=== PATIENT | male | born 1960 | race African-American/Black ===

== ENCOUNTER 2024-10-31 07:29 | Outpatient (CLI) | payer BC, SELFPAY ==
--- NOTE | ~2024-10-31 | PE_ITS ---
EXAMINATION: PET_PETPSMAST_PT DATE: 10/31/2024 09:55 INDICATION: Prostate cancer TECHNIQUE: 5.347 mCi of Illucix Ga-68([id number]) was administered i.v. Low dose computed stephanie graphy (CT) images were acquired from the base of the brain to the base of the brain to the proximal thighs for attenuation correction and anatomic localization. Positron emission tomography (PET) image s were acquired in the same distribution beginning 104 minutes after injection. Images including fuse d PET/CT images were reconstructed in axial, coronal, and sagittal planes. Automated exposure control technique was employed. The dose-length product was 1211.52mGy-cm. COMPARISON: None FINDINGS: Head/neck: Typical pattern of symmetric physiologic increased activity in the lacrimal, parotid and submandibula r glands as well as along the mucosa of the nasal and oral cavities, pharynx and hypopharynx. No path ologically enlarged cervical lymphadenopathy or suspicious foci of increased uptake in the visualized head or neck. Chest: Mild emphysema. Borderline cardiomegaly. No pericardial or pleural effusion. Thoracic aorta is normal in caliber. No pathologically enlarged or PSMA avid thoracic lymphadenopathy. Abdomen/pelvis/proximal thighs: Physiologic renal accumulation and excretion of activity in the kidneys, bladder and along portions o f ureters. Low-attenuation photopenic cyst at both kidneys larger on the right measuring 4.7 cm. Pros tatomegaly measuring 5.1 x 3.9 cm with heterogeneous mild this may uptake with small focus of subtly increased uptake with maximal SUV of 5.1 at the right side of the prostate likely representing the si te of reported primary prostate cancer. Normal degree and slightly heterogenous pattern of increased uptake throughout the liver, spleen and a couple more caudal small splenules without radiologic corre late or dominant PSMA avid lesion. The gallbladder, pancreas and bilateral adrenal glands are normal. Moderate uptake scattered throughout the bowels with typical duodenal and proximal jejunal predomina nce and without radiologic correlate, also likely physiologic. Normal appendix. No other abnormal foc i of increased uptake or pathologically enlarged lymphadenopathy in the abdomen, pelvis or proximal t highs. Musculoskeletal: Mild scattered degenerative skeletal changes. No suspicious lytic, blastic or abnormally PSMA avid adali ne lesions. IMPRESSION: 1. Small focus of mild uptake at the right-sided the enlarged prostate consistent with reported prima ry prostate cancer. No evident metastatic disease. Reviewed, dictated and finalized at location A. IMPRESSION: 1. Small focus of mild uptake at the right-sided the enlarged prostate consiste nt with reported primary prostate cancer. No evident metastatic disease.
--- OUTSIDE RECORDS SUMMARY | 2024-10-31 07:36 | XMS_ITS | Encounter Summary ---
Author Organization [facility] Address [facility] [place] [address] Care Team Providers Care Acid Dipper Name Role Phone Bakari Howe MD Primary Care Provider [phone] Encounter Details Date Type Department Care Team (Latest Contact Info) Description 02/13/[address] [facility] , Generic Conversion, Social History Tobacco Use Types Packs/Day Years Used Date Smoking Tobacco: Never Assessed Sex and Gender Information Value Date Recorded Sex Assigned at Male 10/04/2024 3:09 PM CDT Legal Sex Male 4:43 PM CDT Gender Identity Not on file Sexual Orientation Not on file documented as of this encounter Plan of Treatment Not on file documented as of this encounter Visit Diagnoses Not on filedocumented in this encounter Additional Health Concerns Infection Onset Date Last Indicated Resolved Time COVID-19 Rule Out 02/14/2020 02/14/2020 02/17/2020 2:31 AM COMMUNICATION ELECTRONIC TECHNICIAN COVID-19 Confirmed 02/14/2020 02/14/2020 1 12:34 AM COMMUNICATION ELECTRONIC TECHNICIAN documented as of this encounter Care Teams Acid Dipper Relationship Specialty Start Date End Date Bakari Howe MD [facility] [place] [address] PCP - General FAMILY PRACTICE 11/29/19 documented as of this encounter
--- OUTSIDE RECORDS SUMMARY | 2024-10-31 07:36 | XMS_ITS | Encounter Summary ---
Author Organization [facility] Address [facility] [place] [address] Care Team Providers Care Bell Neck Hammerer Name Role Phone Bakari Howe MD Primary Care Provider [phone] Encounter Details Date Type Department Care Team (Late st Contact Info) Description 10/02/2024 [employer] Message Enc [facility] Pre-[place]mission [place] [address] [facility] Provider PLEASE CALL US AT YOUR EARLIEST CONVENIENCE Social History Tobacco Use Types Packs/Day Years Used Date Smoking Tobacco: Never Smokeless Tobacco: Never Alcohol Use Standard Drinks/Week Comments Yes 3.3 (1 standard drink = 0.6 oz p ure alcohol) socially AUDIT-C Answer Date Recorded Q1: How often do you have a drink containing alc ohol? Never 12/12/2019 Average Number of Drinks Not on file 020 Frequency of Binge Drinking Not on file 06/2019 PHQ-2 Answer Date Recorded PHQ-2 Score - If the patient scores above 3, please move on to questions 3-9 0 01/08/2020 Sex and Gender Information Value Date Recorded Sex Assigned at Male 10/04/2024 3:09 PM CDT Legal Sex Male 4:43 PM CDT Gender Identity Not on file Sexual Orientation Not on file documented as of this encounter Plan of Treatment Not on file documented as of this encounter Visit Diagnoses Not on filedocumented in this encounter Care Teams Bell Neck Hammerer Relationship Specialty Start Date End Date Bakari Howe MD [facility] [place] [address] PCP - General FAMILY PRACTICE 11/29/19 documented as of this encounter
--- OUTSIDE RECORDS SUMMARY | 2024-10-31 07:36 | XMS_ITS | Encounter Summary ---
Author Organization [facility] Address [address] [place] [address] Care Team Providers Care Inhalation Therapist Name Role Phone Bakari Howe MD Primary Care Provider + [phone] Encounter Details Date Type Department Care Team (Late st Contact Info) Description 10/09/2024 Prep for Procedure [facility] Laboratory [address] [place], [place] [id number] Gautam Wright MD [address] [facility] [address] [place], [place] [id number] Social History Tobacco Use Types Packs/Day Years [...] on file documented as of this encounter Functional Status * Calculated C-SSRS Risk Score (Lifetime/Recent) Answer Date of Assessment Author Status No Risk Indicated 10/09/2024 8:20 AM CDT Me francisco Valenzuela RN Active * [place] Suicide Severity Rating Scale (Screener/Recent Self-Report) Question Answer Date of Assessment Author Status 1. Wish to be (Past 1 Month) No 10/09/2024 8:20 AM SENAT Guanaco Valenzuela RN Active 2. Non-Specific Active Suicidal Thoughts (Past 1 Month) No 10/09/2024 8:20 AM SENAT Guanaco Valenzuela RN Active 6. Suicidal Behavior (Lifetime) No 10/09/2024 8:20 AM CDT Mary Vlaenzuela sa, RN Active documented as of this encounter Plan of Treatment Not on file documented as of this encounter Results * URINE BACTERIA CULTURE (10/04/2024 3:20 PM CDT) SPEC DESCRIPTION URINE CLEAN CATCH 10/04/2024 3:38 PM CDT [facility] SPECIAL REQUESTS NO SPECIAL REQUEST 10/04/2024 3:38 PM CDT [facility] CULTURE RESULT NO GROWTH 2 DAYS 10/06/2024 8:31 AM CDT [facility] URINE SPECIMEN OBTAINED BY CLEAN CATCH PROCEDURE / Unknown 10/04/2024 3:20 PM CDT 10/04/2024 3:39 PM CDT Gautam Wright MD MICROBIOLOGY - GENERAL OR DERABLES Final Result [facility] [address] [place] [address], [place] [phone] * URINALYSIS (10/04/2024 3:20 PM CDT) SPECIMEN TYPE URINE CLEAN CATCH 10/04/2024 3:38 PM CDT [facility] COLOR (U) LIGHT YELLOW 10/04/2024 3:46 PM CDT [facility] TRANSPARENCY CLEAR 10/04/2024 3:46 PM CDT [facility] SPECIFIC GRAVITY (U) 1.021 1.001 - 1.030 10/04/2024 3:46 PM CDT [facility] U PH 6.5 5.0 - 9.0 10/04/2024 3:46 PM CDT [facility] LEUKOCYTES (U) NEGATIVE NEGATIVE 10/04/2024 3:46 PM CDT [facility] NITRITES NEGATIVE NEGATIVE 10/04/2024 3:46 PM CDT [facility] PROTEIN RANDOM (U) NEGATIVE <30 MG/DL 10/04/2024 3:46 PM CDT [facility] GLUCOSE (U) NORMAL NORMAL MG/DL 10/04/2024 3:46 PM CDT [facility] KETONES MG/DL (U) NEGATIVE NEGATIVE MG/DL 10/04/2024 3:46 PM CDT [facility] UROBILINOGEN NORMAL NORMAL MG/DL 10/04/2024 3:46 PM CDT [facility] BILIRUBIN (U) NEGATIVE NEGATIVE MG/DL 10/04/2024 3:46 PM CDT [facility] BLOOD (U) NEGATIVE NEGATIVE 10/04/2024 3:46 PM CDT [facility] URINE SPECIMEN OBTAINED BY CLEAN CATCH PROCEDURE / Unknown 10/04/2024 3:20 PM CDT us Gautam Wright MD URINE ORDERABLES Final Re sult [facility] [address] [place] [address], [place] [phone] * PTT, PARTIAL THROMBOPLASTIN TIME (10/04/2024 3:18 PM CDT) PTT 34.5 25.1 - 36.5 SEC 10/04/2024 4:07 PM CDT [facility] 10/04/2024 3:18 PM CDT Gautam Wright MD LABORATORY Final Res ult Performing Organization Address City/[facility]/ZIP Co de Phone Number [facility] [address] [place] [address], * PROTIME/INR, VENOUS (10/04/2024 3:18 PM CDT) PROTIME 11.2 10.2 - 12.9 SEC 10/04/2024 4:07 PM CDT [facility] INR 1.0 10/04/2024 4:07 PM CDT [facility] Comment: Recommended INR Therapeutic Goals: 2.0-3.0 Routine Therapy 2.5-3.5 Mechanical Prosthetic Valves (High Risk) 10/04/2024 3:18 PM CDT Gautam Wright MD LABORATORY Final Res ult Performing Organization Address [facility] Co de Phone Number [facility] [address] [place] [address], * (ABNORMAL) BASIC METABOLIC PANEL (10/04/2024 3:18 PM CDT) GLUCOSE 116(H) 70 - 99 MG/DL 10/04/2024 4:09 PM CDT [facility] BUN 18 7 - 18 MG/DL 10/04/2024 4:09 PM CDT [facility] CREATININE S/P/B 1.21 0.7 - 1.3 MG/DL 10/04/2024 4:09 PM CDT [facility] SODIUM S/P/B 139 136 - 145 MMOL/L 10/04/2024 4:09 PM CDT [facility] POTASSIUM S/P/B 4.4 3.5 - 5.1 MMOL/L 10/04/2024 4:09 PM CDT [facility] CHLORIDE S/P/B 108 97 - 115 MMOL/L 10/04/2024 4:09 PM CDT [facility] CO2 28.3 21 - 32 MMOL/L 10/04/2024 4:09 PM CDT [facility] CALCIUM S/P/B 9.1 8.5 - 10.1 MG/DL 10/04/2024 4:09 PM CDT [facility] ANION GAP 2.7 2 - 10 MMOL/L 10/04/2024 4:09 PM CDT [facility] BUN CREATININE RATIO 14.9 6 - 26 10/04/2024 4:09 PM CDT [facility] GFR ESTIMATE 66(L) >90 ML/MIN/1.7 3 M2 10/04/2024 4:09 PM CDT [facility] Comment: NOTE: eGFR is not calculated for patients <18 years of age or gender unknown. This is an estimated GFR calculation using the new CKD EPI creatinine equation without race and so does not require a correction factor for race. This estimated GFR should not be used for calculating drug doses. 10/04/2024 3:18 PM CDT us Gautam Wright MD LABORATORY Final Res ult [facility] [address] [place] [address], [place] [phone] * (ABNORMAL) CBC W/DIFF AUTOMATED (10/04/2024 3:18 PM CDT) [facility] WBC 5.93 4.5 - 11.0 x10'3/uL 10/04/2024 3:51 PM CDT [facility] RBC 4.63(L) 4.70 - 6.10 x10'6/uL 10/04/2024 3:51 PM CDT [facility] HGB 13.7(L) 14.0 - 18.0 G/DL 10/04/2024 3:51 PM CDT [facility] HCT 42.2(L) 43.0 - 54.0 % 10/04/2024 3:51 PM CDT [facility] MCV 91.1 80.0 - 94.0 FL 10/04/2024 3:51 PM CDT [facility] MCH 29.6 27.0 - 31.0 PG 10/04/2024 3:51 PM CDT [facility] MCHC 32.5 32.0 - 36.0 G/DL 10/04/2024 3:51 PM CDT [facility] RDW 13.0 11.5 - 14.5 % 10/04/2024 3:51 PM CDT [facility] PLT 202 130 - 400 x10'3/uL 10/04/2024 3:51 PM CDT [facility] MPV 11.0 9.3 - 12.2 FL 10/04/2024 3:51 PM CDT [facility] DIFFERENTIAL TYPE AUTOMATED DIFFERENTIAL 10/04/2024 3:51 PM CDT [facility] NEUTROPHILS % 44.4 % 10/04/2024 3:51 PM CDT [facility] LYMPHOCYTES % 44.5 % 10/04/2024 3:51 PM CDT [facility] MONOCYTES % 9.8 % 10/04/2024 3:51 PM CDT [facility] EOSINOPHILS 0.8 % 10/04/2024 3:51 PM CDT [facility] BASOPHILS 0.3 % 10/04/2024 3:51 PM CDT [facility] IMMATURE GRANS % 0.2 % 10/05/19 3:51 PM CDT [facility] ABS. NEUTROPHILS 2.63 1.80 - 7.70 x10'3/uL 10/04/2024 3:51 PM CDT [facility] ABS. LYMPHOCYTES 2.64 1.00 - 4.80 x10'3/uL 10/04/2024 3:51 PM CDT [facility] ABS. MONOCYTES 0.58 0.30 - 0.82 x10'3/uL 10/04/2024 3:51 PM CDT [facility] ABS. EOSINOPHILS 0.05 0.04 - 0.54 x10'3/uL 10/04/2024 3:51 PM CDT [facility] ABS. BASOPHILS 0.02 0.01 - 0.08 x10'3/uL 10/04/2024 3:51 PM CDT [facility] ABS. IMMATURE GRANULOCYTES 0.01 0.00 - 0.49 x10'3/uL 10/04/2024 3:51 PM CDT [facility] 10/04/2024 3:18 PM CDT us Gautam Wright MD LABORATORY Final Res ult [facility] [address] [place] [address], [place] [phone] documented in this encounter Visit Diagnoses Diagnosis Elevated PSA- Primary Elevated prostate specific antigen (PSA) Benign essential microscopic hematuria Microscopic hematuria documented in this encounter Care Teams Inhalation Therapist Relationship Specialty Start Date End Date Bakari Howe MD [facility] [place] [address] PCP - General FAMILY PRACTICE 11/29/19 documented as of this encounter
--- OUTSIDE RECORDS SUMMARY | 2024-10-31 07:36 | XMS_ITS | Clinical Summary ---
Author Organization [place] [id number] [facility] Address [address] [place] [address] Care Team Providers Care Stripper Soft Plastic Name Role Phone Bakari Howe MD Primary Care Provider + Allergies No known active allergies Medications dilTIAZem CD 240 mg 24 hr capsule TK ONE C PO QD 01/29/2020 Active atorvastatin (LIPITOR) 20 mg tablet TK 1 T PO QD 01/29/2020 Active aspirin 81 MG oral suspension 01/27/2006 Act payton acetaminophen (TYLENOL) 325 mg tablet 650 mg 02/21/2020 Active metFORMIN XR (GLUCOPHAGE XR) 500 mg 24 hr tablet Take 500 mg by mouth daily 11/20/2021 Active Active Problems Problem Noted Date Diagnosed Date Obstructive sleep apnea 03/09/2022 BMI 31.0-31.9,adult 11/24/2021 Hypersomnia 11/24/2021 Sleep disorder 11/24/2021 Leg swelling 07/15/2020 Restrictive lung disease 07/15/2020 Nonsmoker 04/15/2020 Mild intermittent asthma without complication History of COVID-19 04/15/2020 Resolved Problems Problem Noted Date Diagnosed Date Resolved Date Overweight 07/15/2020 11/24/2021 Surgical History Surgery Date Site/Laterality Comments VASECTOMY Medical History Medical History Date Comments Hypertension Family History Medical History Relation Name Comments Heart disease Brother Heart disease Father Relation Name Status Comments Brother Father Mother Social History Tobacco Use Types Packs/Day Years Used Date Smoking Tobacco: Former Smokeless Tobacco: Never Comments:as a teenager Alcohol Use Standard Drinks/Week Comments Yes 0 (1 standard drink = 0.6 oz pur e alcohol) socially AUDIT-C Answer Date Recorded Q1: How often do you have a drink containing alc ohol? 2-4 times a month 11/18/2020 Q2: How many drinks containi ng alcohol do you have on a typical day when you are drinking? 1 or 2 11/18/2020 Q3: How often do you have si x or more drinks on one occasion? Never 11/18/2020 Personal Safety Answer Date Recorded Have you ever been in or are you currently in a harmful physical or emotional relationship or is someone making you feel afraid or unsafe? 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 Gender Identity Male 04/13/2020 6:28 PM RELATIONSHIP ADVISOR Sexual Orientation Not on file Obstetrics History Last Filed Vital Signs Vital Sign Reading Time Taken Comments Blood Pressure 164/82 12/31/2023 6:15 PM CDT Pulse 68 12/31/2023 6:15 PM CDT Temperature 36.7 C (98 F) 12/31/2023 2:40 PM CDT Respiratory Rate 17 12/31/2023 6:15 PM CDT Oxygen Saturation 98% 12/31/2023 6:15 PM CDT Inhaled Oxygen Concentration - - Weight 100.3 kg (221 lb 1.9 oz) 12/31/2023 2:40 PM CDT Height 185.4 cm (6' 1) 12/31/2023 2:40 PM CDT Body Mass Index 29.17 12/31/2023 2:40 PM CDT Plan of Treatment Health Maintenance Due Date Last Done Comments Colon Cancer Screening-Colonoscopy 1958 Depression Screening 1958 Fall Risk Assessment 1960 Hepatitis C Screening 1960 Prostate Cancer Screening-PSA 1958 DTaP/Tdap/Td Vaccine (1 - Tdap) 1969 Hepatitis B Screening 02/07/1976 Pneumococcal vaccine 65+ (1 of 2 - PCV) 1977 Zoster Vaccine (1 of 2) 02/07/2008 Abdominal Aortic Aneurysm (AAA) Screen 2023 Well Visit 65+ 2023 Influenza Vaccine (Season Ended) 2024 Procedures Procedure Name Priority Date/Time Associated Diagnosis Comments CT ABDOMEN PELVIS WO CONTRAST Routine 08/28/2012 12:00 AM CDT from Last 3 Months or Most Recently Relevant to Health Maintenance Results * CT Abdomen Pelvis WO Contrast (08/28/2012 12:00 AM CDT) Anatomical Region Laterality Modality Body N/A Computed Tomogra phy 08/28/2012 Impressions 08/28/2012 11:14 PM CDT 1. No evidence of renal stone. 2. Opacification lingular segment incompletely imaged 3. Renal cyst THIS IS AN ELECTRONICALLY VERIFIED REPORT 08/28/2012 11:11 PM: Raul Neff M.D. Raul Neff M.D. GR:delmer 11:11 PM 11:11 PM [EOD] Narrative 08/28/2012 11:14 PM CDT EXAMINATION: CT OF THE ABDOMEN AND PELVIS - RENAL STONE PROTOCOL HISTORY: Left lower quadrant pain fever decreased appetite COMPARISON: None TECHNIQUE: Examination performed without intravenous or enteric contrast. 3 mm axial images were obtained. FINDINGS: The lung bases are notable for nodular density on first image incompletely imaged . ABDOMEN: There is no evidence of renal or ureteral stone. There is no hydronephrosis. The liver, gallbladder, pancreas, kidneys, adrenal, large bowel, and small bowel are normal in appearance. There is a cyst right kidney. A normal appendix is identified There is no evidence of obstruction or free air. Vessels are normal in caliber. There are no pathologically sized lymph nodes. PELVIS: There is no evidence of free fluid. The bladder and prostate are unremarkable. There is no lymphadenopathy. The osseous structures are unremarkable. Procedure Note Provider, MD Nina - 08/25/2020 EXAMINATION: CT OF THE ABDOMEN AND PELVIS - RENAL STONE PROTOCOL HISTORY: Left lower quadrant pain fever decreased appetite COMPARISON: None TECHNIQUE: Examination performed without intravenous or enteric contrast.3 mm axial images were obtained. FINDINGS: The lung bases are notable for nodular density on first image incompletely imaged . ABDOMEN: There is no evidence of renal or ureteral stone. There is no hydronephrosis. The liver, gallbladder, pancreas, kidneys, adrenal, large bowel, and small bowel are normal in appearance. There is a cyst rightkidney. A normal appendix is identified There is no evidence of obstruction orfree air. Vessels are normal in caliber. There are no pathologically sized lymphnodes. PELVIS: There is no evidence of free fluid. The bladder and prostate are unremarkable. There is no lymphadenopathy. The osseous structures are unremarkable. IMPRESSION: 1. No evidence of renal stone. 2. Opacification lingular segment incompletely imaged 3. Renal cyst THIS IS AN ELECTRONICALLY VERIFIED REPORT 08/28/2012 11:11 PM: Raul Neff M.D. Raul Neff M.D. GR:gr 11:11 PM 11:11 PM [EOD] Cindy Moya MD IM CT PROCEDURES Final R esult from Last 3 Months or Most Recently Relevant to Health Maintenance Additional Health Concerns Infection Onset Date Last Indicated COVID19 02/18/2020 02/17/2020 Insurance [employer] OOS [employer] ACCESS OOS Member Subscriber Plan / Payer ( fective 2011-Present) Name:David Petty Relation to Subscriber:Spouse Name:BERNARDINO PETTY Date of :1972 (Home) Address: [address] [place] [address] Payer ID:[id number] ([facility]) Type:[employer] Address: [address] [place] [address] [employer] ACCESS OOS Care Teams Stripper Soft Plastic Relationship Specialty Start Date End Date Bakari Howe MD [facility] - General 02/17/20
--- OUTSIDE RECORDS SUMMARY | 2024-10-31 07:36 | XMS_ITS | Continuity of Care Document ---
Author Name [facility] Organization [facility] Care Team Providers Care Non Destructive Testing Supervisor Name Role Phone [facility] Unavailable Unavailable Social History Combined list of available smoking, tobacco, and other social history from Department of Defense and Veterans Affairs facilities. Social History Type Response Date Comment Sourc e This section is an empty social history section. [facility]
--- OUTSIDE RECORDS SUMMARY | 2024-10-31 07:36 | XMS_ITS | Referral Summary ---
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 Gender Identity Male 04/13/2020 6:28 PM SHOE LACER Sexual Orientation Not on file Last Filed Vital Signs Vital Sign Reading [...] 12/31/2023 2:40 PM CDT Plan of Treatment Not on file Procedures Procedure Name Priority Date/Time Associated Diagnosis [...] PM 11:11 PM [EOD] Cindy Moya MD IMG CT PROCEDURES Final R esult from Last 3 Months or Most Recently Relevant to Health Maintenance Additional Health Concerns Infection Onset Date Last Indicated COVID19 02/18/2020 02/17/2020 Insurance [employer] OOS [employer] O[employer] Care Teams Biofuels Plant Manager Relationship Specialty Start Date End Date Bakari Howe MD PCP - General 02/17/20
--- OUTSIDE RECORDS SUMMARY | 2024-10-31 07:36 | XMS_ITS | Clinical Summary ---
Author Organization [facility] Address [address] [place] [address] Care Team Providers Care Catechist Name Role Phone Bakari Howe MD Primary Care Provider + [phone] Allergies No known active allergies Medications CARTIA XT 240 MG 24 hr capsule Take 1 capsule (240 mg total) by mouth daily. 0 Active losartan (COZAAR) 25 MG tablet Take 1 tablet (25 mg total) by mouth daily. Active metFORMIN ER (GLUCOPHAGE-XR) 500 MG 24 hr tablet Take 1 tablet (500 mg total) by mouth daily. Active montelukast (SINGULAIR) 10 MG tablet Take by mouth daily. Active atorvastatin (LIPITOR) 20 MG tablet Take 1 tablet (20 mg total) by mouth nightly at bedtime. Active aspirin EC (ASPIRIN EC) 81 MG tablet Take 1 tablet by mouth daily. 10/05/19 Discontinu ed(Error) atorvastatin 20 MG tablet Take 20 mg by mouth daily. 0 10/05/19 25 Discontinu ed(Duplica te Med) Active Problems Problem Noted Date Diagnosed Date Elevated PSA 05/11/2017 Resolved Problems Problem Noted Date Diagnosed Date Resolved Date Encounter for preventive health examination 05/09/2017 12/20/2019 Encounters Date Type Department Care Team Description 10/09/2024 9:54 AM CDT - 10/09/2024 10:40 AM CDT Surgery [facility] [place] [address] Randy Magaña MD TRANSRECTAL ULTRASOUND FUSION GUIDED PROSTATE BIOPSY 10/09/2024 9:35 AM CD[address] [facility] Event [facility] [place] [place] [address] Scooter Carter MD Jarvis, Brittany L, CNP 10/09/2024 7:35 AM CDT - 10/09/2024 11:05 AM CDT Hospital En[facility] [address] Randy Magaña MD Discharge Disposition: Home or Self Care (Routine Discharge) 10/09/2024 Travel 10/09/[address] [facility] [address] Randy Magaña MD 10/04/2024 3:15 PM CDT - 10/04/2024 11:59 PM CDT Hospital Encounter [facility] [address] Randy Magaña MD Discharge Disposition: Home or Self Care (Routine Discharge) 10/04/2024 Travel 10/02/20[address] [employer] Message Enc [facility] [place] [address] [facility] PLEASE CALL US AT YOUR EARLIEST CONVENIENCE from Last 3 Months Family History Medical History Relation Comments No Known Problems Father Cancer Maternal Uncle Prostate No Known Problems Mother Relation Status Comments Father Maternal Uncle Mother Social History Tobacco Use Types Packs/Day Years Used Date Smoking Tobacco: Never Smokeless Tobacco: Never Tobacco Cessation:Counseling Given: Not Answered Alcohol Use Standard Drinks/Week Comments Yes 3.3 [...] on file Sexual Orientation Not on file Last Filed Vital Signs Vital Sign Reading Time Taken Comments Blood Pressure 155/79 10/09/2024 11:00 AM CDT Pulse 63 10/09/2024 11:00 AM CDT Temperature 37.1 C (98.7 F) 10/09/2024 11:00 AM CDT Respiratory Rate 16 10/09/2024 11:00 AM CDT Oxygen Saturation 95% 10/09/2024 11:00 AM CDT Inhaled Oxygen Concentration - - Weight 98.9 kg (218 lb 0.6 oz) 10/09/2024 7:58 A M CDT Height 185.4 cm (6' 1) 10/09/2024 7:58 AM CDT Body Mass Index 28.77 10/09/2024 7:58 AM CDT Plan of Treatment Health Maintenance Due Date Last Done Comments Colorectal Cancer Screening Colonoscopy (10 Years) 1960 Hepatitis C 02/07/1976 DTaP, Tdap and Td Vaccines ( 1 - Tdap) 1977 Pneumococcal Vaccine: 50+ Years (1 of 1 - PCV) 02/07/2008 Zoster Vaccines (1 of 2) 02/07/2008 COVID-19 Vaccine (3 - 2023-2 5 season) 2023 07/09/2020, 06/11/2020 RSV Immunization or 60+ Years (1 - 1-dose 75+ series) 2033 Meningococcal B Vaccine Aged Out No l onger eligible based on patient's age to complete this topic Meningococcal Vaccine Aged Out No donell silvia eligible based on patient's age to complete this topic RSV Immunizations Under 20 Months Aged Out No longer eligible b ased on patient's age to complete this topic Procedures Procedure Name Priority Date/Time Associated Diagnosis Comments POCT GLUCOSE - DOCKED DEVICE Routine 10/09/2024 9:59 AM CDT BIOPSY OF PROSTATE,NEEDLE/PUNC H 10/09/2024 9:35 AM CDT ELEVATED PROSTATE SPECIFIC ANTIGEN, BENIGN ESSENTIAL R97.20, R31.1 Case Notes SCHED BY FAX 09/27/2024 [facility] PHONE ASSESS Special Needs [facility] CONFIRMATION # [id number] POCT GLUCOSE - DOCKED DEVICE Routine 10/09/2024 8:12 AM CDT PATHOLOGY Routine 10/09/2024 12:00 AM CDT URINE BACTERIA CULTURE Routine 10/04/2024 3:20 PM CDT Elevated PSA Benign essential microscopic hematuria HC URINALYSIS AUTO W/O MICRO Routine 10/04/2024 3:20 PM CDT Elevated PSA Benign essential microscopic hematuria PARTIAL THROMBOPLASTIN TIME,PTT Routine 10/04/2024 3:18 PM CDT Elevated PSA Benign essential microscopic hematuria PROTHROMBIN TIME, VENOUS Routine 10/04/2024 3:18 PM CDT Elevated PSA Benign essential microscopic hematuria BASIC METABOLIC PANEL Routine 10/04/2024 3:18 PM CDT Elevated PSA Benign essential microscopic hematuria CBC W/DIFF AUTOMATED Routine 10/04/2024 3:18 PM CDT Elevated PSA Benign essential microscopic hematuria from Last 3 Months Results * (ABNORMAL) POCT glucose (10/09/2024 9:59 AM CDT) Only the most recent of2 resultswithin the time period is included. GLUCOSE POC 100(H) 70 - 99 mg/dL 10/09/2024 10:00 AM CDT [facility] 10/09/2024 9:59 AM CDT Randy Magaña MD POCT ORDERABLES - DEVICE Final Result [facility] [address] [place] [address], [place] [phone] * Pathology (10/09/2024 12:00 AM CDT) PATHOLOGY [facility] Department of Laboratory Medicine [address] [place] [phone] , extension [phone] Pathology Report Surgical Pathology Report Name: SUSANNE PETTY Specimen #: [id number] Age: 10 1960 (Age: 64) Location: [facility] Sex: M Procedure Date: 10/09/2024 [facility] #: [id number] Date Received: 10/09/2024 Date Reported: 10/10/2024 Provider: RANDY MAGAÑA MD Source: A: Prostate, left lateral base, needle biopsy B: Prostate, left base, needle biopsy C: Prostate, left lateral mid, needle biopsy D: Prostate, left medial mid, needle biopsy E: Prostate, left lateral apex, needle biopsy F: Prostate, left medial apex, needle biopsy G: Prostate, right lateral base, needle biopsy H: Prostate, right base, needle biopsy I: Prostate, right lateral mid, needle biopsy J: Prostate, right medial mid, needle biopsy K: Prostate, right lateral apex, needle biopsy L: Prostate, right medial apex, needle biopsy M: Prostate, needle biopsy, region of interest #1 N: Prostate, needle biopsy, region of interest #2 Clinical History: Elevated PSA FINAL DIAGNOSIS: A. Prostate, left lateral base, core biopsy: -Benign prostate tissue. B. Prostate, left base, core biopsy: - Adenocarcinoma with ductal features, grade Group 4 (Jada score 4+4 = 8), involving 1 of 2 tissue cores, 25%. -No perineural invasion is identified. -No periprostatic fat invasion is identified. C. Prostate, left mid lateral, core biopsy: -Benign prostate tissue. D. Prostate, left mid medial, core biopsy: - Adenocarcinoma with ductal features, grade Group 4 (Macclenny score 4+4 = 8), involving 1 of 1 tissue cores, 40%. -No perineural invasion is identified. -No periprostatic fat invasion is identified. E. Prostate, left apex lateral, core biopsy: - Adenocarcinoma with ductal features, grade Group 4 (Jada score 4+4 = 8), involving 1 of 1 tissue cores, 10%. -No perineural invasion is identified. -No periprostatic fat invasion is identified. F. Prostate, left apex medial, core biopsy: -Benign prostate tissue. G. Prostate, right base lateral, core biopsy: -Benign prostate tissue. H. Prostate, right base, core biopsy: -Benign prostate tissue. I. Prostate, right lateral mid, core biopsy: - Adenocarcinoma with ductal features, grade Group 4 (Macclenny score 4+4 = 8), involving 1 of 1 tissue cores, 20%. -No perineural invasion is identified. -No periprostatic fat invasion is identified. J. Prostate, right mid medial, core biopsy: - Adenocarcinoma with ductal features, grade Group 3 (Macclenny score 4+3 = 7), involving 1 of 1 tissue cores, 15%. -No perineural invasion is identified. -No periprostatic fat invasion is identified. K. Prostate, right apex lateral, core biopsy: -Acinar adenocarcinoma (conventional/usual type), grade Group 1 (Macclenny score 3+3 = 6), involving 1 of 1 tissue cores, 10%. -No perineural invasion is identified. -No periprostatic fat invasion is identified. L. Prostate, right apex medial, core biopsy: -Benign prostate tissue. M. Prostate, MYCHAL #1, core biopsy: -Benign prostate tissue. N. Prostate, MYCHAL #2, core biopsy: - Adenocarcinoma with ductal features, grade Group 3 (Jada score 4+3 = 7), involving 2 of 5 tissue cores, 20%. -No perineural invasion is identified. -No periprostatic fat invasion is identified. Diagnosis Comment: Portions of this case was reviewed in intradepartmental consultation by Dr. Ivana Braden, who concurs with the above diagnosis. Gross Description: A. Received in formalin, labeled with a patient label and as left base lateral are 2 less than 0.1 cm diameter cores of white-uriostegui tissue, 0.3 and 1.0 cm in length. The specimen is entirely submitted in cassette A1. B. Received in formalin, labeled with a patient label and as left base are 2 less than 0.1 cm diameter cores of white-uriostegui tissue, 0.2 and 0.6 cm in length. The specimen is entirely submitted in cassette B1. C. Received in formalin, labeled with a patient label and as left mid lateral is a 0.5 cm long, less than 0.1 cm diameter core of white-uriostegui tissue. The specimen is entirely submitted in cassette C1. D. Received in formalin, labeled with a patient label and as left mid medial is a 0.8 cm long, less than 0.1 cm diameter core of white-uriostegui tissue. The specimen is entirely submitted in cassette D1. E. Received in formalin, labeled with a patient label and as left apex lateral is a 1.0 cm long, less than 0.1 cm diameter core of white-uriostegui tissue. The specimen is entirely submitted in cassette E1. F. Received in formalin, labeled with a patient label and as left apex medial is a 0.7 cm long, less than 0.1 cm diameter core of white-uriostegui tissue. The specimen is entirely submitted in cassette F1. G. Received in formalin, labeled with a patient label and as right base lateral is a 1.5 cm long, less than 0.1 cm diameter core of white-uriostegui tissue. The specimen is entirely submitted in cassette G1. H. Received in formalin, labeled with a patient label and as right base is a 1.5 cm long, less than 0.1 cm diameter core of white-uriostegui tissue. The specimen is entirely submitted in cassette H1. I. Received in formalin, labeled with a patient label and as right mid lateral is a 1.3 cm long, less than 0.1 cm diameter core of white-uriostegui tissue. The specimen is entirely submitted in cassette I1. J. Received in formalin, labeled with a patient label and as right mid medial is a 1.0 cm long, less than 0.1 cm diameter core of white-uriostegui tissue. The specimen is entirely submitted in cassette J1. K. Received in formalin, labeled with a patient label and as right apex lateral is a 1.2 cm long, less than 0.1 cm diameter core of white-uriostegui tissue. The specimen is entirely submitted in cassette K1. L. Received in formalin, labeled with a patient label and as right apex medial is a 1.7 cm long, less than 0.1 cm diameter core of white-uriostegui tissue. The specimen is entirely submitted in cassette L1. M. Received in formalin, labeled with a patient label and as region of interest #1. Are several pieces of tissue. The largest piece is a 1.2 cm long, less than 0.1 cm diameter core of white-uriostegui tissue. The remaining minute cores of tissue range from 0.1 to 0.3 cm in greatest dimension and are approximately 0.6 x 0.3 x 0.1 cm in aggregate. The specimen is entirely submitted in cassette M1. N. Received in formalin, labeled with a patient label and as region of interest #2 are multiple delicate less than 0.1 cm diameter cores of white tissue which fragments upon manipulation. The pieces are approximately 1.2 x 0.3 x 0.1 cm in aggregate. The specimen is entirely submitted in cassette N1. Gross examination (when applicable), interpretation, and sign out were performed at [facility], [address] [place] [address]. Electronically Signed Out ESTEPHANIA AMATO MD [facility] TISSUE PROSTATE / Unknown 9:18 AM CDT Tissue specimen (specimen) PROSTATE / Unknown 10/09/2024 9:18 AM CDT Tissue specimen (specimen) PROSTATE / Unknown 10/09/2024 9:18 AM CDT Tissue specimen (specimen) PROSTATE / Unknown 10/09/2024 9:18 AM CDT Tissue specimen (specimen) PROSTATE / Unknown 10/09/2024 9:18 AM CDT Tissue specimen (specimen) PROSTATE / Unknown 10/09/2024 9:18 AM CDT Tissue specimen (specimen) PROSTATE / Unknown 10/09/2024 9:18 AM CDT Tissue specimen (specimen) PROSTATE / Unknown 10/09/2024 9:18 AM CDT Tissue specimen (specimen) PROSTATE / Unknown 10/09/2024 9:18 AM CDT Tissue specimen (specimen) PROSTATE / Unknown 10/09/2024 9:18 AM CDT Tissue specimen (specimen) PROSTATE / Unknown 10/09/2024 9:18 AM CDT Tissue specimen (specimen) PROSTATE / Unknown 10/09/2024 9:18 AM CDT Tissue specimen (specimen) PROSTATE / Unknown 10/09/2024 9:18 AM CDT Tissue specimen (specimen) PROSTATE / Unknown 10/09/2024 9:18 AM CDT us Randy Magaña MD PATHOLOGY/CYTOLOGY ORDERA BLES Final Result [facility] [address] [place] [address], [id number] * URINALYSIS (10/04/2024 3:20 PM CDT) SPECIMEN TYPE URINE CLEAN CATCH 10/04/2024 3:38 PM CDT [facility] COLOR (U) LIGHT YELLOW 10/04/2024 3:46 PM CDT [facility] TRANSPARENCY CLEAR 10/04/2024 3:46 PM CDT [facility] SPECIFIC GRAVITY (U) 1.021 1.001 - 1.030 10/04/2024 3:46 PM CDT [facility] U PH 6.5 5.0 - 9.0 10/04/2024 3:46 PM CDT [facility] LEUKOCYTES (U) NEGATIVE NEGATIVE 10/04/2024 3:46 PM CDT [facility] NITRITES NEGATIVE NEGATIVE 10/04/2024 3:46 PM CDT [facility] PROTEIN RANDOM (U) NEGATIVE <30 MG/DL 10/04/2024 3:46 PM CDT [facility] GLUCOSE (U) NORMAL NORMAL MG/DL 10/04/2024 3:46 PM CDT [facility] KETONES MG/DL (U) NEGATIVE NEGATIVE MG/DL 10/04/2024 3:46 PM CDT [facility] UROBILINOGEN NORMAL NORMAL MG/DL 10/04/2024 3:46 PM CDT [facility] BILIRUBIN (U) NEGATIVE NEGATIVE MG/DL 10/04/2024 3:46 PM CDT [facility] BLOOD (U) NEGATIVE NEGATIVE 10/04/2024 3:46 PM CDT [facility] URINE SPECIMEN OBTAINED BY CLEAN CATCH PROCEDURE / Unknown 10/04/2024 3:20 PM CDT Randy Magaña MD URINE ORDERABLES Final Re sult [facility] [address] [place] [address], [place] [phone] * URINE BACTERIA CULTURE (10/04/2024 3:20 PM CDT) SPEC DESCRIPTION URINE CLEAN CATCH 10/04/2024 3:38 PM CDT [facility] SPECIAL REQUESTS NO SPECIAL REQUEST 10/04/2024 3:38 PM CDT [facility] CULTURE RESULT NO GROWTH 2 DAYS 10/06/2024 8:31 AM CDT [facility] URINE SPECIMEN OBTAINED BY CLEAN CATCH PROCEDURE / Unknown 10/04/2024 3:20 PM CDT 10/04/2024 3:39 PM CDT Randy Magaña MD MICROBIOLOGY - GENERAL OR DERABLES Final Result Performing Organization Address City/[facility]/ZIP Co de Phone Number [facility] [address] [place] [address], [place] [phone] * PTT, PARTIAL THROMBOPLASTIN TIME (10/04/2024 3:18 PM CDT) PTT 34.5 25.1 - 36.5 SEC 10/04/2024 4:07 PM CDT [facility] 10/04/2024 3:18 PM CDT us Randy Magaña MD LABORATORY Final Res ult Performing Organization Address City/[facility]/ZIP Co de Phone Number [facility] [address] [place] [address], [place] [phone] * PROTIME/INR, VENOUS (10/04/2024 3:18 PM CDT) PROTIME 11.2 10.2 - 12.9 SEC 10/04/2024 4:07 PM CDT [facility] INR 1.0 10/04/2024 4:07 PM CDT [facility] Comment: Recommended INR Therapeutic Goals: 2.0-3.0 Routine Therapy 2.5-3.5 Mechanical Prosthetic Valves (High Risk) 10/04/2024 3:18 PM CDT Randy Magaña MD LABORATORY Final Res ult [facility] [address] [place] [address], * (ABNORMAL) BASIC METABOLIC PANEL (10/04/2024 3:18 PM CDT) Pathologist [facility] GLUCOSE 116(H) 70 - 99 MG/DL 10/04/2024 4:09 PM CDT [facility] BUN 18 7 - 18 MG/DL 10/04/2024 4:09 PM CDT [facility] CREATININE S/P/B 1.21 0.7 - 1.3 MG/DL 10/04/2024 4:09 PM CDT [facility] SODIUM S/P/B 139 136 - 145 MMOL/L 10/04/2024 4:09 PM CDT [facility] POTASSIUM S/P/B 4.4 3.5 - 5.1 MMOL/L 10/04/2024 4:09 PM CDT [facility] CHLORIDE S/P/B 108 97 - 115 MMOL/L 10/04/2024 4:09 PM CDT [facility] CO2 28.3 21 - 32 MMOL/L 10/04/2024 4:09 PM CDT [facility] CALCIUM S/P/B 9.1 8.5 - 10.1 MG/DL 10/04/2024 4:09 PM CDT [facility] ANION GAP 2.7 2 - 10 MMOL/L 10/04/2024 4:09 PM CDT [facility] BUN CREATININE RATIO 14.9 6 - 26 10/04/2024 4:09 PM CDT [facility] GFR ESTIMATE 66(L) >90 ML/MIN/1.7 3 M2 10/04/2024 4:09 PM CDT [facility] Comment: NOTE: eGFR is not calculated for patients <18 years of age or gender unknown. This is an estimated GFR calculation using the new CKD EPI creatinine equation without race and so does not require a correction factor for race. This estimated GFR should not be used for calculating drug doses. 10/04/2024 3:18 PM CDT us Randy Magaña MD LABORATORY Final Res ult [facility] [address] [place] [address], [place] [phone] * (ABNORMAL) CBC W/DIFF AUTOMATED (10/04/2024 3:18 PM CDT) WBC 5.93 4.5 - 11.0 x10'3/uL 10/04/2024 3:51 PM CDT [facility] RBC 4.63(L) 4.70 - 6.10 x10'6/uL 10/04/2024 3:51 PM CDT [facility] HGB 13.7(L) 14.0 - 18.0 G/DL 10/04/2024 3:51 PM CDT [facility] HCT 42.2(L) 43.0 - 54.0 % 10/04/2024 3:51 PM CDT [facility] MCV 91.1 80.0 - 94.0 FL 10/04/2024 3:51 PM CDT [facility] MCH 29.6 27.0 - 31.0 PG 10/04/2024 3:51 PM CDT [facility] MCHC 32.5 32.0 - 36.0 G/DL 10/04/2024 3:51 PM CDT [facility] RDW 13.0 11.5 - 14.5 % 10/04/2024 3:51 PM CDT [facility] PLT 202 130 - 400 x10'3/uL 10/04/2024 3:51 PM CDT [facility] MPV 11.0 9.3 - 12.2 FL 10/04/2024 3:51 PM CDT [facility] DIFFERENTIAL TYPE AUTOMATED DIFFERENTIAL 10/04/2024 3:51 PM CDT [facility] NEUTROPHILS % 44.4 % 10/04/2024 3:51 PM CDT [facility] LYMPHOCYTES % 44.5 % 10/04/2024 3:51 PM CDT [facility] MONOCYTES % 9.8 % 10/04/2024 3:51 PM CDT [facility] EOSINOPHILS 0.8 % 10/04/2024 3:51 PM CDT [facility] BASOPHILS 0.3 % 10/04/2024 3:51 PM CDT [facility] IMMATURE GRANS % 0.2 % 10/05/19 3:51 PM CDT [facility] ABS. NEUTROPHILS 2.63 1.80 - 7.70 x10'3/uL 10/04/2024 3:51 PM CDT [facility] ABS. LYMPHOCYTES 2.64 1.00 - 4.80 x10'3/uL 10/04/2024 3:51 PM CDT [facility] ABS. MONOCYTES 0.58 0.30 - 0.82 x10'3/uL 10/04/2024 3:51 PM CDT [facility] ABS. EOSINOPHILS 0.05 0.04 - 0.54 x10'3/uL 10/04/2024 3:51 PM CDT [facility] ABS. BASOPHILS 0.02 0.01 - 0.08 x10'3/uL 10/04/2024 3:51 PM CDT [facility] ABS. IMMATURE GRANULOCYTES 0.01 0.00 - 0.49 x10'3/uL 10/04/2024 3:51 PM CDT [facility] 10/04/2024 3:18 PM CDT us Randy Magaña MD LABORATORY Final Res ult [facility] [address] [place] [address], from Last 3 Months Insurance [facility] Care Teams Catechist Relationship Specialty Start Date End Date Bakari Howe MD [facility] [place] [address] PCP - General FAMILY PRACTICE 11/29/19
== END 2024-10-31 07:30 | disposition home or self-care (01) ==
PROVIDERS: PCP Family Medicine; Visit Provider Urology
DX: C61 Malignant neoplasm of prostate (principal)
CPT/HCPCS: 78815; A9596

== ENCOUNTER 2025-01-01 14:37 | Outpatient (CLI) | payer BC, SELFPAY ==
--- NOTE | ~2025-01-01 | DEXA_ITS ---
Bone Density Report Name: SUSANNE ROSENBERG Age: 64 Sex: Male Ethnicity: White Date of : 1960 Indication: height loss; cancer; Referring Provider: RANDY MAGAÑA Study: Bone densitometry was performed. Exam Date: January 01, 2025 Accession number: [id number] Bone Density: Region BMD T-score Z-score Classification AP Spine(L1-L4) 1.016 -0.7 0.1 Normal Femoral Neck (Left) 0.854 -0.6 0.5 Normal Total Hip (Left) 1.046 0.1 0.6 Normal Femoral Neck (Right) 0.812 -0.9 0.2 Normal Total Hip (Right) 1.060 0.2 0.7 Normal Total Hip Mean 1.053 0.2 0.7 Normal World Health Organization criteria for BMD impression classify patients as: Normal (T-score at or above -1.0), Osteopenia (T-score between -1.0 and -2.5), or Osteoporosis (T-score at or below -2.5). 10-year Fracture Risk: FRAX not reported because: All T-scores for Spine Total, Hip Total, Femoral Neck at or above -1.0 Clinical Information Provided by Patient: Has used the following medications: Vitamin D, Calcium Has the following medical conditions: Cancer Patient maximum height was 75.0 No regular weight bearing exercise Impression: The patient has normal bone mass. Discussion: BONE DENSITY IS ABOVE THE MINIMUM DESIRABLE LEVEL AT ALL SKELETAL SITES TESTED. This patient?s bone mineral density is above the minimum desirable level (T-score -1.0 or better) at all sites measured. The patient should follow a healthful lifestyle (good nutrition with adequate calcium and vitamin D, and appropriate weight-bearing exercise). Follow-Up: Consider repeating this study in 5 years or sooner if there is some new clinical indication. Reported by: MARTA on 01/01/2025 3:14:00 PM. Reviewed, dictated and finalized at location A.
--- OUTSIDE RECORDS SUMMARY | 2025-01-01 14:42 | XMS_ITS | Encounter Summary ---
Author Organization [facility] Address [facility] [place] [address] Care Team Providers Care Pharmacy Technician Assistant Name Role Phone Bakari Howe MD Primary Care Provider [phone] Encounter Details Date Type Department Care Team (Late st Contact Info) Description 10/02/2024 [facility] Message Enc [facility] [place] [address] [facility] Provider PLEASE CALL US AT [...] on filedocumented in this encounter Care Teams Pharmacy Technician Assistant Relationship Specialty Start Date End Date Bakari Howe MD [facility] [place] [address] PCP - General FAMILY PRACTICE 11/29/19 documented as of this encounter
--- OUTSIDE RECORDS SUMMARY | 2025-01-01 14:42 | XMS_ITS | Encounter Summary ---
Author Organization [facility] Address [address] [place] [id number] Care Team Providers Care Gum Scoring Machine Operator Name Role Phone Bakari Howe MD Primary Care Provider + [phone] Encounter Details Date Type Department Care Team (Late st Contact Info) Description 10/09/2024 Prep for Procedure [facility] [place], [place] [id number] Gautam Wright MD 3 [facility] [address] [place], [place] [id number] Social History Tobacco Use Types Packs/Day Years [...] CDT Me francisco Valenzuela RN Active * Smyth Suicide Severity Rating Scale (Screener/Recent Self-Report) Question Answer Date of Assessment Author Status 1. Wish to be (Past 1 Month) No 10/09/2024 8:20 AM SENAT Guanaco Valenzuela RN Active 2. Non-Specific Active Suicidal Thoughts (Past 1 Month) No 10/09/2024 8:20 AM SENAT Guanaco Valenzuela RN Active 6. Suicidal Behavior (Lifetime) No 10/09/2024 8:20 AM CDT Mary Valenzuela sa, RN Active documented as of this encounter Plan of Treatment Not on file documented as of this encounter Results * URINE BACTERIA CULTURE (10/04/2024 3:20 PM CDT) SPEC DESCRIPTION URINE CLEAN CATCH 10/04/2024 3:38 PM CDT [facility] SPECIAL REQUESTS NO SPECIAL REQUEST 10/04/2024 3:38 PM CDT [facility] CULTURE RESULT NO GROWTH 2 DAYS 10/06/2024 8:31 AM CDT [facility] URINE SPECIMEN OBTAINED BY CLEAN CATCH PROCEDURE / Unknown 10/04/2024 3:20 PM CDT 10/04/2024 3:39 PM CDT Gautam Wright MD MICROBIOLOGY - GENERAL OR DERABLES Final Result [facility] [address] [place] [address], [place] [phone] * URINALYSIS (10/04/2024 3:20 PM CDT) SPECIMEN TYPE URINE CLEAN CATCH 10/04/2024 3:38 PM CDT [facility] COLOR (U) LIGHT YELLOW 10/04/2024 3:46 PM CDT [facility] TRANSPARENCY CLEAR 10/04/2024 3:46 PM CDT [facility] SPECIFIC GRAVITY (U) 1.021 1.001 - 1.030 10/04/2024 3:46 PM CDT [facility] U PH 6.5 5.0 - 9.0 10/04/2024 3:46 PM CDT [facility] LEUKOCYTES (U) NEGATIVE NEGATIVE 10/04/2024 3:46 PM CDT [facility] NITRITES NEGATIVE NEGATIVE 10/04/2024 3:46 PM CDT [facility] PROTEIN RANDOM (U) NEGATIVE <30 MG/DL 10/04/2024 3:46 PM CDT [facility] GLUCOSE (U) NORMAL NORMAL MG/DL 10/04/2024 3:46 PM CDT [facility] KETONES MG/DL (U) NEGATIVE NEGATIVE MG/DL 10/04/2024 3:46 PM CDT [facility] UROBILINOGEN NORMAL NORMAL MG/DL 10/04/2024 3:46 PM CDT [facility] BILIRUBIN (U) NEGATIVE NEGATIVE MG/DL 10/04/2024 3:46 PM CDT [facility] BLOOD (U) NEGATIVE NEGATIVE 10/04/2024 3:46 PM CDT [facility] URINE SPECIMEN OBTAINED BY CLEAN CATCH PROCEDURE / Unknown 10/04/2024 3:20 PM CDT us Gautam Wright MD URINE ORDERABLES Final Re sult [facility] [address] [place] [address], [place] [phone] * PTT, PARTIAL THROMBOPLASTIN TIME (10/04/2024 3:18 PM CDT) PTT 34.5 25.1 - 36.5 SEC 10/04/2024 4:07 PM CDT [facility] 10/04/2024 3:18 PM CDT Gautam Wright MD LABORATORY Final Res ult Performing Organization Address City/[facility]/ZIP Co de Phone Number [facility] [address] [place] [address], * PROTIME/INR, VENOUS (10/04/2024 3:18 PM CDT) PROTIME 11.2 10.2 - 12.9 SEC 10/04/2024 4:07 PM CDT [facility] INR 1.0 10/04/2024 4:07 PM CDT [facility] Comment: Recommended INR Therapeutic Goals: 2.0-3.0 Routine Therapy 2.5-3.5 Mechanical Prosthetic Valves (High Risk) 10/04/2024 3:18 PM CDT Gautam Wright MD LABORATORY Final Res ult Performing Organization Address [facility] Co de Phone Number [facility] [address] [place] [address], * (ABNORMAL) BASIC METABOLIC PANEL (10/04/2024 3:18 PM CDT) GLUCOSE 116(H) 70 - 99 MG/DL 10/04/2024 4:09 PM CDT [facility] BUN 18 7 - 18 MG/DL 10/04/2024 4:09 PM CDT [facility] CREATININE S/P/B 1.21 0.7 - 1.3 MG/DL 10/04/2024 4:09 PM CDT [facility] SODIUM S/P/B 139 136 - 145 MMOL/L 10/04/2024 4:09 PM CDT [facility] POTASSIUM S/P/B 4.4 3.5 - 5.1 MMOL/L 10/04/2024 4:09 PM CDT [facility] CHLORIDE S/P/B 108 97 - 115 MMOL/L 10/04/2024 4:09 PM CDT [facility] CO2 28.3 21 - 32 MMOL/L 10/04/2024 4:09 PM CDT [facility] CALCIUM S/P/B 9.1 8.5 - 10.1 MG/DL 10/04/2024 4:09 PM CDT [facility] ANION GAP 2.7 2 - 10 MMOL/L 10/04/2024 4:09 PM CDT [facility] BUN CREATININE RATIO 14.9 6 - 26 10/04/2024 4:09 PM CDT [facility] GFR ESTIMATE 66(L) >90 ML/MIN/1.7 3 M2 10/04/2024 4:09 PM CDT [facility] Comment: NOTE: eGFR is not calculated [...] Gautam Wright MD LABORATORY Final Res ult [facility] [address] [place] [address], [place] [phone] * (ABNORMAL) CBC W/DIFF AUTOMATED (10/04/2024 3:18 PM CDT) [facility] WBC 5.93 4.5 - 11.0 x10'3/uL 10/04/2024 3:51 PM CDT [facility] RBC 4.63(L) 4.70 - 6.10 x10'6/uL 10/04/2024 3:51 PM CDT [facility] HGB 13.7(L) 14.0 - 18.0 G/DL 10/04/2024 3:51 PM CDT [facility] HCT 42.2(L) 43.0 - 54.0 % 10/04/2024 3:51 PM CDT [facility] MCV 91.1 80.0 - 94.0 FL 10/04/2024 3:51 PM CDT [facility] MCH 29.6 27.0 - 31.0 PG 10/04/2024 3:51 PM CDT [facility] MCHC 32.5 32.0 - 36.0 G/DL 10/04/2024 3:51 PM CDT [facility] RDW 13.0 11.5 - 14.5 % 10/04/2024 3:51 PM CDT [facility] PLT 202 130 - 400 x10'3/uL 10/04/2024 3:51 PM CDT [facility] MPV 11.0 9.3 - 12.2 FL 10/04/2024 3:51 PM CDT [facility] DIFFERENTIAL TYPE AUTOMATED DIFFERENTIAL 10/04/2024 3:51 PM CDT [facility] NEUTROPHILS % 44.4 % 10/04/2024 3:51 PM CDT [facility] LYMPHOCYTES % 44.5 % 10/04/2024 3:51 PM CDT [facility] MONOCYTES % 9.8 % 10/04/2024 3:51 PM CDT [facility] EOSINOPHILS 0.8 % 10/04/2024 3:51 PM CDT [facility] BASOPHILS 0.3 % 10/04/2024 3:51 PM CDT [facility] IMMATURE GRANS % 0.2 % 10/05/19 3:51 PM CDT [facility] ABS. NEUTROPHILS 2.63 1.80 - 7.70 x10'3/uL 10/04/2024 3:51 PM CDT [facility] ABS. LYMPHOCYTES 2.64 1.00 - 4.80 x10'3/uL 10/04/2024 3:51 PM CDT [facility] ABS. MONOCYTES 0.58 0.30 - 0.82 x10'3/uL 10/04/2024 3:51 PM CDT [facility] ABS. EOSINOPHILS 0.05 0.04 - 0.54 x10'3/uL 10/04/2024 3:51 PM CDT [facility] ABS. BASOPHILS 0.02 0.01 - 0.08 x10'3/uL 10/04/2024 3:51 PM CDT [facility] ABS. IMMATURE GRANULOCYTES 0.01 0.00 - 0.49 x10'3/uL 10/04/2024 3:51 PM CDT [facility] 10/04/2024 3:18 PM CDT us Gautam Wright MD LABORATORY Final Res ult [facility] [address] [place] [address], [place] [phone] documented in this encounter Visit Diagnoses Diagnosis Elevated PSA- Primary Elevated prostate specific antigen (PSA) Benign essential microscopic hematuria Microscopic hematuria documented in this encounter Care Teams Gum Scoring Machine Operator Relationship Specialty Start Date End Date Bakari Howe MD [facility] [place] [address] PCP - General FAMILY PRACTICE 11/29/19 documented as of this encounter
--- OUTSIDE RECORDS SUMMARY | 2025-01-01 14:42 | XMS_ITS | Clinical Summary ---
Author Organization [facility] Address [address] [place] [address] Care Team Providers Care Electrical Appliance Preparer Name Role Phone Bakari Howe MD Primary Care Provider + [phone] Allergies No known active allergies Medications CARTIA XT 240 MG 24 hr capsule Take 1 capsule (240 mg total) by mouth daily. 10/23/2019 Active losartan (COZAAR) 25 MG tablet Take 1 tablet (25 mg total) by mouth daily. Active metFORMIN ER (GLUCOPHAGE-XR) 500 MG 24 hr tablet Take 1 tablet (500 mg total) by mouth daily. Active montelukast (SINGULAIR) 10 MG tablet Take by mouth daily. Active atorvastatin (LIPITOR) 20 MG tablet Take 1 tablet (20 mg total) by mouth nightly at bedtime. Active Active Problems Problem Noted Date Diagnosed Date Elevated PSA 05/11/2017 Resolved Problems Problem Noted Date Diagnosed Date Resolved Date Encounter for preventive health examination 05/09/2017 12/20/2019 Encounters Date Type Department Care Team Description 10/09/2024 9:54 AM CDT - 10/09/2024 10:40 AM CDT Surgery [facility] [place] [address] Randy Magaña MD TRANSRECTAL ULTRASOUND FUSION GUIDED PROSTATE BIOPSY 10/09/2024 9:35 AM CDT Anesthesia [place] [address] Scooter Carter MD Jarvis, Brittany L, EARRINGS FABRICATOR 10/09/2024 7:35 AM CDT - 10/09/2024 11:05 AM CDT Hospital En[facility] [address] Randy Magaña MD Discharge Disposition: Home or Self Care (Routine Discharge) 10/09/2024 Travel 10/09/2024 Prep for Procedure [facility] [place] [address] Randy Magaña MD 10/04/2024 3:15 PM CDT - 10/04/2024 11:59 PM CDT Hospital Encounter [facility] [place] [address] Randy Magaña MD Discharge Disposition: Home or Self Care (Routine Discharge) 10/04/2024 Travel 10/02/[email or web address] [facility] [place] [address] [facility] Provider PLEASE CALL US AT YOUR EARLIEST [...] of 2) 02/07/2008 COVID-19 Vaccine (3 - 2024-2 6 season) 2024 07/09/2020, 06/11/2020 RSV Immunization or 60+ Years [...] FAX 09/27/2024 LCS PHONE ASSESS Special Needs [facility] CONFIRMATION # [id number] POCT GLUCOSE - DOCKED DEVICE Routine 10/09/2024 [...] of2 resultswithin the time period is included. [facility] GLUCOSE POC 100(H) 70 - 99 mg/dL 10/09/2024 10:00 AM CDT [facility] 10/09/2024 9:59 AM CDT us Randy Magaña MD POCT ORDERABLES - DEVICE Final Result [facility] [address] [place] [address], [place] [phone] * Pathology (10/09/2024 12:00 AM CDT) Pathologist [facility] PATHOLOGY [facility] Department of Laboratory Medicine [address] [place] [address] , extension [phone] Pathology Report Surgical Pathology Report Name: SUSANNE PETTY Specimen #: [id number] Age: 10 1960 (Age: 64) Location: [facility] Sex: M Procedure Date: 10/09/2024 [facility] #: [id number] Date Received: 10/09/2024 Date Reported: 10/10/2024 Provider: [...] Adenocarcinoma with ductal features, grade Group 3 ([place] score 4+3 = 7), involving 1 of 1 tissue cores, 15%. -No perineural invasion is identified. -No periprostatic fat invasion is identified. K. Prostate, right apex lateral, core biopsy: -Acinar adenocarcinoma (conventional/usual type), grade Group 1 ([place] score 3+3 = 6), involving 1 of [...] interpretation, and sign out were performed at [facility], [address] [place] [address], [place] [address]. Electronically Signed Out ESTEPHANIA AMATO MD [facility] TISSUE PROSTATE / Unknown 9:18 AM [...] Magaña MD PATHOLOGY/CYTOLOGY ORDERA BLES Final Result [facility] [address] [place] [id number], [id number] * URINALYSIS (10/04/2024 3:20 PM CDT) SPECIMEN TYPE URINE CLEAN CATCH 10/04/2024 3:38 PM CDT [facility] COLOR (U) LIGHT YELLOW 10/04/2024 3:46 PM CDT [facility] TRANSPARENCY CLEAR 10/04/2024 3:46 PM CDT [facility] SPECIFIC GRAVITY (U) 1.021 1.001 - 1.030 10/04/2024 3:46 PM CDT [facility] U PH 6.5 5.0 - 9.0 10/04/2024 3:46 PM CDT [facility] LEUKOCYTES (U) NEGATIVE NEGATIVE 10/04/2024 3:46 PM CDT [facility] NITRITES NEGATIVE NEGATIVE 10/04/2024 3:46 PM CDT [facility] PROTEIN RANDOM (U) NEGATIVE <30 MG/DL 10/04/2024 3:46 PM CDT [facility] GLUCOSE (U) NORMAL NORMAL MG/DL 10/04/2024 3:46 PM CDT [facility] KETONES MG/DL (U) NEGATIVE NEGATIVE MG/DL 10/04/2024 3:46 PM CDT [facility] UROBILINOGEN NORMAL NORMAL MG/DL 10/04/2024 3:46 PM CDT [facility] BILIRUBIN (U) NEGATIVE NEGATIVE MG/DL 10/04/2024 3:46 PM CDT [facility] BLOOD (U) NEGATIVE NEGATIVE 10/04/2024 3:46 PM CDT [facility] URINE SPECIMEN OBTAINED BY CLEAN CATCH PROCEDURE / Unknown 10/04/2024 3:20 PM CDT us Randy Magaña MD URINE ORDERABLES Final Re sult [facility] [address] [place] [address], [place] [phone] * URINE BACTERIA CULTURE (10/04/2024 3:20 PM CDT) SPEC DESCRIPTION URINE CLEAN CATCH 10/04/2024 3:38 PM CDT [facility] SPECIAL REQUESTS NO SPECIAL REQUEST 10/04/2024 3:38 PM CDT [facility] CULTURE RESULT NO GROWTH 2 DAYS 10/06/2024 8:31 AM CDT [facility] URINE SPECIMEN OBTAINED BY CLEAN CATCH PROCEDURE / Unknown 10/04/2024 3:20 PM CDT 10/04/2024 3:39 PM CDT Randy Magaña MD MICROBIOLOGY - GENERAL OR DERABLES Final Result [facility] [address] [place] [address], [place] [phone] * PTT, PARTIAL THROMBOPLASTIN TIME (10/04/2024 3:18 PM CDT) [facility] PTT 34.5 25.1 - 36.5 SEC 10/04/2024 4:07 PM CDT [facility] 10/04/2024 3:18 PM CDT us Randy Magaña MD LABORATORY Final Res ult [facility] [address] [place] [address], [place] [phone] * PROTIME/INR, VENOUS (10/04/2024 3:18 PM CDT) PROTIME 11.2 10.2 - 12.9 SEC 10/04/2024 4:07 PM CDT [facility] INR 1.0 10/04/2024 4:07 PM CDT [facility] Comment: Recommended INR Therapeutic Goals: 2.0-3.0 Routine Therapy 2.5-3.5 Mechanical Prosthetic Valves (High Risk) 10/04/2024 3:18 PM CDT us Randy Magaña MD LABORATORY Final Res ult [facility] [address] [place] [address], [place] [phone] * (ABNORMAL) BASIC METABOLIC PANEL (10/04/2024 3:18 PM CDT) GLUCOSE 116(H) 70 - 99 MG/DL 10/04/2024 4:09 PM CDT [facility] BUN 18 7 - 18 MG/DL 10/04/2024 4:09 PM CDT [facility] CREATININE S/P/B 1.21 0.7 - 1.3 MG/DL 10/04/2024 4:09 PM CDT [facility] SODIUM S/P/B 139 136 - 145 MMOL/L 10/04/2024 4:09 PM CDT [facility] POTASSIUM S/P/B 4.4 3.5 - 5.1 MMOL/L 10/04/2024 4:09 PM CDT [facility] CHLORIDE S/P/B 108 97 - 115 MMOL/L 10/04/2024 4:09 PM CDT [facility] CO2 28.3 21 - 32 MMOL/L 10/04/2024 4:09 PM CDT [facility] CALCIUM S/P/B 9.1 8.5 - 10.1 MG/DL 10/04/2024 4:09 PM CDT [facility] ANION GAP 2.7 2 - 10 MMOL/L 10/04/2024 4:09 PM CDT [facility] BUN CREATININE RATIO 14.9 6 - 26 10/04/2024 4:09 PM CDT [facility] GFR ESTIMATE 66(L) >90 ML/MIN/1.7 3 M2 10/04/2024 4:09 PM CDT [facility] Comment: NOTE: eGFR is not calculated for patients <18 years of age or gender unknown. This is an estimated GFR calculation using the new CKD EPI creatinine equation without race and so does not require a correction factor for race. This estimated GFR should not be used for calculating drug doses. 10/04/2024 3:18 PM CDT Randy Magaña MD LABORATORY Final Res ult [facility] [address] [place] [address], [place] [phone] * (ABNORMAL) CBC W/DIFF AUTOMATED (10/04/2024 3:18 PM CDT) WBC 5.93 4.5 - 11.0 x10'3/uL 10/04/2024 3:51 PM CDT [facility] RBC 4.63(L) 4.70 - 6.10 x10'6/uL 10/04/2024 3:51 PM CDT [facility] HGB 13.7(L) 14.0 - 18.0 G/DL 10/04/2024 3:51 PM CDT [facility] HCT 42.2(L) 43.0 - 54.0 % 10/04/2024 3:51 PM CDT [facility] MCV 91.1 80.0 - 94.0 FL 10/04/2024 3:51 PM CDT [facility] MCH 29.6 27.0 - 31.0 PG 10/04/2024 3:51 PM CDT [facility] MCHC 32.5 32.0 - 36.0 G/DL 10/04/2024 3:51 PM CDT [facility] RDW 13.0 11.5 - 14.5 % 10/04/2024 3:51 PM CDT [facility] PLT 202 130 - 400 x10'3/uL 10/04/2024 3:51 PM CDT [facility] MPV 11.0 9.3 - 12.2 FL 10/04/2024 3:51 PM CDT [facility] DIFFERENTIAL TYPE AUTOMATED DIFFERENTIAL 10/04/2024 3:51 PM CDT [facility] NEUTROPHILS % 44.4 % 10/04/2024 3:51 PM CDT [facility] LYMPHOCYTES % 44.5 % 10/04/2024 3:51 PM CDT [facility] MONOCYTES % 9.8 % 10/04/2024 3:51 PM CDT [facility] EOSINOPHILS 0.8 % 10/04/2024 3:51 PM CDT [facility] BASOPHILS 0.3 % 10/04/2024 3:51 PM CDT [facility] IMMATURE GRANS % 0.2 % 10/05/19 3:51 PM CDT [facility] ABS. NEUTROPHILS 2.63 1.80 - 7.70 x10'3/uL 10/04/2024 3:51 PM CDT [facility] ABS. LYMPHOCYTES 2.64 1.00 - 4.80 x10'3/uL 10/04/2024 3:51 PM CDT [facility] ABS. MONOCYTES 0.58 0.30 - 0.82 x10'3/uL 10/04/2024 3:51 PM CDT [facility] ABS. EOSINOPHILS 0.05 0.04 - 0.54 x10'3/uL 10/04/2024 3:51 PM CDT [facility] ABS. BASOPHILS 0.02 0.01 - 0.08 x10'3/uL 10/04/2024 3:51 PM CDT [facility] ABS. IMMATURE GRANULOCYTES 0.01 0.00 - 0.49 x10'3/uL 10/04/2024 3:51 PM CDT [facility] 10/04/2024 3:18 PM CDT us Randy Magaña MD LABORATORY Final Res ult [facility] [address] [place] [address], from Last 3 Months Insurance [facility] Care Teams Electrical Appliance Preparer Relationship Specialty Start Date End Date Bakari Howe MD [address] [place] [id number] PCP - General FAMILY PRACTICE 11/29/19
--- OUTSIDE RECORDS SUMMARY | 2025-01-01 14:42 | XMS_ITS | Clinical Summary ---
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
--- OUTSIDE RECORDS SUMMARY | 2025-01-01 14:42 | XMS_ITS | Encounter Summary ---
Author Organization [facility] Address [facility] [place] [address] Care Team Providers Care Hospital Laboratory Technician Name Role Phone Bakari Howe MD Primary Care Provider [phone] Encounter Details Date Type Department Care Team [...] Rule Out 02/14/2020 02/14/2020 02/17/2020 2:31 AM FISH HATCHERY MAN COVID-19 Confirmed 02/14/2020 02/14/2020 1 12:34 AM FISH HATCHERY MAN documented as of this encounter Care Teams Hospital Laboratory Technician Relationship Specialty Start Date End Date Bakari Howe MD [facility] [address] [place] [address] PCP - General FAMILY PRACTICE 11/29/19 documented as of this encounter
== END 2025-01-01 14:38 | disposition home or self-care (01) ==
LOC: ANHFOHIMG 14:41
PROVIDERS: PCP Family Medicine; Visit Provider Urology
DX: C61 Malignant neoplasm of prostate (principal); Z08 Encounter for follow-up examination after completed treatment for malignant neoplasm; Z79.818 Long term (current) use of other agents affecting estrogen receptors and estrogen levels; Z79.899 Other long term (current) drug therapy
CPT/HCPCS: 77080